=== PATIENT | male | born 1995 | race Two or more races ===

== ENCOUNTER 2021-02-24 04:48 | Emergency (ER) | payer OTHER ==
[2021-02-24] MEDS ORDERED: LIDOCAINE 1% INJ 10MG/ML (20 ML MDV) SQ ONE (04:56)
--- NOTE | 2021-02-24 04:56 | ED ---
Wound/Laceration HPI - General Chief Complaint: Wound/Laceration Stated Complaint: Laceration,Left Arm Time Seen by Provider: 02/24/21 04:54 Source: patient, EMS Mode of arrival: EMS Limitations: no limitations - History of Present Illness Initial Comments: 's patient is 25-year-old man who presents with complaint of laceration to the posterior aspect of left elbow. Patient states that he broke a heavy ceramic lamp when he fell and he was cut on the sharp edge of it. He denies any weakness or numbness distal to the injury. States that his last tetanus shot was less than 10 years ago. -: minutes(s) Extremity Location: Left: Elbow Place: home Patient Tetanus UTD: Yes Context: accidental Associated Symptoms: none Treatments Prior to Arrival: bandage - Related Data Allergies Allergy/AdvReac Type Severity Reaction Status Date / Time No Known Allergies Allergy Verified 02/24/21 04:52 Review of Systems ROS Statement: Those systems with pertinent positive or pertinent negative responses have been documented in the HPI. ROS Other: All systems not noted in ROS Statement are negative. Constitutional: Denies: fever Musculoskeletal: Reports: as per HPI (Left elbow laceration) Skin: Reports: as per HPI, other (Laceration). Denies: rash Neurological: Denies: weakness, numbness, paresthesias Hematological/Lymphatic: Denies: easy bleeding Past Medical History Past Medical History: No Reported History History of Any Multi-Drug Resistant Organisms: None Reported Past Surgical History: Cholecystectomy Past Psychological History: ADD/ADHD, Bipolar Smoking Status: Never smoker Past Alcohol Use History: Occasional Past Drug Use History: None Reported General Exam Limitations: no limitations General appearance: alert, in no apparent distress Cardiovascular Exam: Present: other (Strong radial and ulnar pulses on the left. Normal capillary refill distal to injury) Extremities exam: Present: full ROM, normal capillary refill (to left upper extremity). Absent: tenderness Neurological exam: Present: alert. Absent: motor sensory deficit Skin exam: Present: warm, dry, normal color, other (Laceration to the left forearm. Dorsal aspect, near elbow. [place] flap with 2.5 cm length along one leg and 4.5 cm length on the other leg. The laceration is into the muscle bed) Course Vital Signs 02/24/21 02/24/21 04:49 04:52 Temperature 98.2 F Pulse Rate 67 Respiratory 22 Rate Blood Pressure 112/64 O2 Sat by Pulse 97 Oximetry Procedures - Laceration Laceration #1 Consent Obtained: verbal consent Indication: laceration Site: upper extremity Size (cm): 6 Description: flap Depth: involves muscle layer Anesthetic Used: lidocaine 1% Anesthesia Technique: local infiltration Pre-repair: irrigated extensively Type of Sutures: nylon, vicryl Size of Sutures: 4-0 Number of Sutures: 19 Technique: simple, interrupted Patient Tolerated Procedure: well, no complications Disposition Clinical Impression: Laceration Disposition: HOME SELF-CARE Condition: Good Instructions (If sedation given, give patient instructions): Laceration (ED) Additional Instructions: Have sutures removed 12-14 days. Is patient prescribed a controlled substance at d/c from ED?: No Referrals: None,Stated [Primary Care Provider] - 1-2 days
[2021-02-24 06:08] VITALS: BP 127/77; PULSE 87; RESP 20; TEMP 98
== END 2021-02-24 06:06 | disposition home or self-care (01) ==
LOC: EC 04:48
DX: S51.012A Laceration without foreign body of left elbow, initial encounter (principal); F90.9 Attention-deficit hyperactivity disorder, unspecified type; F31.9 Bipolar disorder, unspecified; Z90.49 Acquired absence of other specified parts of digestive tract; W26.8XXA Contact with other sharp object(s), not elsewhere classified, initial encounter
CPT/HCPCS: 99283; 12002; J2001

== ENCOUNTER 2023-05-04 12:11 | Emergency (ER) | payer OTHER ==
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
[2023-05-04 14:48] LABS: Amphetamine Screen,Urine Not Detected (NotDetected); Barbiturate Screen,Urine Not Detected (NotDetected); Benzodiazepines Screen,Urine Not Detected (NotDetected); Cocaine Screen,Urine Not Detected (NotDetected); Methadone Screen, Urine Not Detected (NotDetected); Opiate Screen,Urine Not Detected (NotDetected); Oxycodone Screen, Urine Not Detected (NotDetected); Phencyclidine Screen,Urine Not Detected (NotDetected); Tricyclic Antidepressant,Urine Not Detected (NotDetected); Urn Cannabinoid Scrn Detected (NotDetected)
[2023-05-04 17:52] VITALS: BP 134/74; PULSE 80; RESP 16; TEMP 98
== END 2023-05-04 17:45 | disposition home or self-care (01) ==
LOC: EC 12:11
DX: F31.9 Bipolar disorder, unspecified (principal); F90.9 Attention-deficit hyperactivity disorder, unspecified type; F12.90 Cannabis use, unspecified, uncomplicated; Z79.899 Other long term (current) drug therapy; Z90.49 Acquired absence of other specified parts of digestive tract
CPT/HCPCS: 80306; 82075; 99285

== ENCOUNTER 2024-07-12 14:42 | Inpatient (IN) | payer MEDICAID, OTHER ==
--- NOTE | 2024-07-12 14:50 | ED ---
Psych HPI - General Chief Complaint: Psychiatric Symptoms Stated Complaint: Mental health eval Time Seen by Provider: 07/12/24 14:50 Source: patient, family, RN notes reviewed Mode of arrival: ambulatory - History of Present Illness Initial Comments: 29-year-old male presenting to emergency department with his [id number] for complaint of suicidal ideation and depression. Patient states that he has a decreased mood over the past few months and states that "i dont' want to be here anymore.' States that he has previous suicidal attempts that were unsuccessful. He denies homicidal ideation, auditory or visual hallucinations. Patient has history of psychiatric inpatient hospitalization with most recent being 2 years ago. follows with case management at [facility] who helps with his medications, states that he is on depatoke. does not follow with a psychiatrist or threapist. He denies drug or alcohol use. Denies physical complaint such as abdominal pain, shortness of breath, fevers, chills, or chest pain. Mother bedside states that patient cut off a majority of his hair prior to arrival with a kitchen knife and states that he has been having abnormal behavior. MD Complaint: suicidal ideation, feels depressed Associated Psychiatric Symptoms: depression, suicidal ideation History of same: Yes Context: not taking psychiatric medications Associated Symptoms: denies other symptoms - Related Data Home Medications Medication Instructions Recorded Confirmed Divalproex ER [Depakote ER] 500 mg PO BID 05/04/23 07/12/24 Allergies Allergy/AdvReac Type Severity Reaction Status Date / Time No Known Allergies Allergy Verified 07/12/24 15:52 Review of Systems ROS Statement: Those systems with pertinent positive or pertinent negative responses have been documented in the HPI. ROS Other: All systems not noted in ROS Statement are negative. Past Medical History Past Medical History: No Reported History History of Any Multi-Drug Resistant Organisms: None Reported Past Surgical History: Cholecystectomy Past Psychological History: ADD/ADHD, Bipolar Smoking Status: Never smoker Past Alcohol Use History: Rare Past Drug Use History: Marijuana General Exam Limitations: no limitations General appearance: alert, in no apparent distress Eye exam: Present: normal appearance, PERRL, EOMI. Absent: scleral icterus, conjunctival injection, periorbital swelling Neck exam: Present: normal inspection. Absent: tenderness, meningismus, lymphadenopathy Respiratory exam: Present: normal lung sounds bilaterally. Absent: respiratory distress, wheezes, rales, rhonchi, stridor Cardiovascular Exam: Present: regular rate, normal rhythm, normal heart sounds. Absent: systolic murmur, diastolic murmur, rubs, gallop, clicks GI/Abdominal exam: Present: soft, normal bowel sounds. Absent: distended, tenderness, guarding, rebound, rigid Extremities exam: Present: normal inspection, full ROM, normal capillary refill. Absent: tenderness, pedal edema, joint swelling, calf tenderness Psychiatric exam: Present: depressed, suicidal ideation Expanded Focused psych exam: Absent: pressured speech, restlessness, flight of ideas, loose associations Course Vital Signs 07/12/24 14:44 Temperature 97.4 F L Pulse Rate 74 Respiratory 18 Rate Blood Pressure 135/61 O2 Sat by Pulse 98 Oximetry Medical Decision Making - Medical Decision Making Was pt. sent in by a medical professional or institution (, PA, PHYSICS TUTOR, urgent care, hospital, or intermediate...) When possible be specific @ -No Did you speak to anyone other than the patient for history (EMS, parent, family, police, friend...)? What history was obtained from this source @ -No Did you review nursing and triage notes (agree or disagree)? Why? @ -I reviewed and agree with nursing and triage notes Were old charts reviewed (outside hosp., previous admission, EMS record, old EKG, old radiological studies, urgent care reports/EKG's, intermediate records)? Report findings @ -No old charts were reviewed Differential Diagnosis (chest pain, altered mental status, abdominal pain women, abdominal pain men, vaginal bleeding, weakness, fever, dyspnea, syncope, he adache, dizziness, GI bleed, back pain, seizure, CVA, palpatations, mental health, musculoskeletal)? @ -Differential Mental Health Depression, anxiety, bipolar, psychosis, schizophrenia, borderline personality, situational depression, adjustment disorder, behavioral disorder, brain tumor, malingering, substance abuse, encephalopathy, medication reaction, dementia, hypothyroidism, degenerative neurologic disorder, lupus.... This is not meant to be all-inclusive list EKG interpreted by me (3pts min.). @ -None X-rays interpreted by me (1pt min.). @ -None done CT interpreted by me (1pt min.). @ -None done U/S interpreted by me (1pt. min.). @ -None done What testing was considered but not performed or refused? (CT, X-rays, U/S, labs)? Why? @ -None What meds were considered but not given or refused? Why? @ -None Did you discuss the management of the patient with other professionals (professionals i.e. , PA, PHYSICS TUTOR, lab, RT, psych nurse, social media designer, chief petroleum engineer, teacher, evp and chief operating officer, case management director)? Give summary @ -i spoke with EPS nurse who recommends admission. patient is voluntarily signing himself in for admission. Was smoking cessation discussed for >3mins.? @ -No Was critical care preformed (if so, how long)? @ -No Were there social determinants of health that impacted care today? How? (Homelessness, low income, unemployed, alcoholism, drug addiction, transportation, low edu. Level, literacy, decrease access to med. care, detention, rehab)? @ -No Was there de-escalation of care discussed even if they declined (Discuss DNR or withdrawal of care, Hospice)? DNR status @ -No What co-morbidities impacted this encounter? (DM, HTN, Smoking, COPD, CAD, Cancer, CVA, ARF, Chemo, Hep., AIDS, mental health diagnosis, sleep apnea, morbid obesity)? @ -None Was patient admitted / discharged? Hospital course, mention meds given and route, prescriptions, significant lab abnormalities, going to OR and other pertinent info. @ -Mental health admission. 29-year-old male presenting with suicidal ideation. Patient noted to have overall flat affect and suicidal ideation on questioning. Patient denies physical complaints. Physical examination is unremarkable. Urine drug screen positive for THC. EPS recommends admission for the patient which patient has voluntarily signed himself in for admission. Undiagnosed new problem with uncertain prognosis? @ -No Drug Therapy requiring intensive monitoring for toxicity (Heparin, Nitro, Insulin, Cardizem)? @ -No Were any procedures done? @ -No Diagnosis/symptom? @ -Suicidal ideation, depression Acute, or Chronic, or Acute on Chronic? @ -acute Uncomplicated (without systemic symptoms) or Complicated (systemic symptoms)? @ -uncomplicated Side effects of treatment? @ -No Exacerbation, Progression, or Severe Exacerbation? @ -No Poses a threat to life or bodily function? How? (Chest pain, [place], [place], pneumonia, PE, COPD, DKA, ARF, appy, cholecystitis, CVA, Diverticulitis, Homicidal, Suicidal, threat to staff... and all critical care pts) @ -No - Lab Data Lab Results 07/12/24 07/12/24 Range/Units 14:50 15:28 Urine Opiates Screen Not Detected (NotDetected) Ur Oxycodone Screen Not Detected (NotDetected) Urine Methadone Screen Not Detected (NotDetected) Ur Barbiturates Screen Not Detected (NotDetected) U Tricyclic Antidepress Not Detected (NotDetected) Ur Phencyclidine Scrn Not Detected (NotDetected) Ur Amphetamines Screen Not Detected (NotDetected) U Methamphetamines Scrn Not Detected (NotDetected) U Benzodiazepines Scrn Not Detected (NotDetected) Urine Cocaine Screen Not Detected (NotDetected) U Marijuana (THC) Screen Detected H (NotDetected) Influenza Type A (PCR) Not Detected (Not Detectd) Influenza Type B (PCR) Not Detected (Not Detectd) RSV (PCR) Not Detected (Not Detectd) SARS-CoV-2 (PCR) Not Detected (Not Detectd) Disposition Clinical Impression: Suicidal ideation Disposition: ADMITTED IP TO THIS [facility] Condition: Serious Referrals: None,Stated [Primary Care Provider] - 1-2 days Decision to Admit Reason: Admit from EC Decision Date: 07/12/24 Decision Time: 15:31
[2024-07-12 15:21] LABS: Amphetamine Screen,Urine Not Detected (NotDetected); Barbiturate Screen,Urine Not Detected (NotDetected); Benzodiazepines Screen,Urine Not Detected (NotDetected); Cocaine Screen,Urine Not Detected (NotDetected); Methadone Screen, Urine Not Detected (NotDetected); Opiate Screen,Urine Not Detected (NotDetected); Oxycodone Screen, Urine Not Detected (NotDetected); Phencyclidine Screen,Urine Not Detected (NotDetected); Tricyclic Antidepressant,Urine Not Detected (NotDetected); Urn Cannabinoid Scrn Detected (NotDetected)
[2024-07-12 16:59] LABS: Influenza A Not Detected (Not Detectd); Influenza B Not Detected (Not Detectd); RSV Not Detected (Not Detectd)
[2024-07-12] MEDS ORDERED: haloperidoL 5 MG TAB PO PRN (17:26)
[2024-07-12] MEDS ORDERED: LORazepam 1 MG TAB PO PRN (17:26)
[2024-07-12] MEDS ORDERED: HALOPERIDOL LACTATE 5 MG/ML 1 ML VIAL IM PRN (17:26)
[2024-07-12] MEDS ORDERED: LORazepam 2 MG/ML INJ IM PRN (17:26)
[2024-07-12 17:41] LABS: Appearance,Urine Clear (Clear); Bacteria,Urine Rare /hpf; Bilirubin,Urine Negative (Negative); Blood,Urine Small (Negative); Color,Urine Yellow; Glucose,Urine (UA) Negative (Negative); Ketones,Urine Negative (Negative); Leukocyte Esterase,Urine Negative (Negative); Mucus,Urine Few /hpf; Nitrite,Urine Negative (Negative); PH, Urine 5.5 (5.0-8.0); Protein,Urine Trace (Negative); RBC,Urine 1 /hpf (0-5); Specific Gravity,Urine 1.034 (1.001-1.035); Urobilinogen,Urine <2.0 mg/dL (<2.0); WBC,Urine 1 /hpf (0-5)
[2024-07-12] MEDS: DIVALPROEX ER 500 MG TAB.ER.24H PO SCH (20:17)
[2024-07-12] MEDS ORDERED: DIVALPROEX ER 500 MG TAB.ER.24H PO SCH (21:00)
--- NOTE | 2024-07-13 03:45 | P.CONS ---
History of Present Illness - Reason for Consult Consult date: 07/13/24 - History of Present Illness Patient is a 29-year-old male with a PMH of ADHD and bipolar disorder who had presented to the emergency room with complaints of depression and suicidal ideation. The patient was admitted to mental health unit where he was seen and evaluated. Patient reports that he has been struggling with his thoughts of depression due to struggling with his social situation. He reports not being able to provide for his kids and not having steady work. He denies alcohol, tobacco, or substance use. He denies any active physical complaints at the time of interview. Denied experiencing chest discomfort, shortness of breath, fever, chills, cough, nausea, vomiting, abdominal pain, diarrhea. The patient's urine toxicology was positive for marijuana Review of systems: Pertinent positives and negatives as discussed in HPI, a complete review of systems was performed and all other systems are negative. Physical examination: Vital signs reviewed General: non toxic, no distress, appears at stated age, normal weight Derm: no unusual rashes/lesions, warm Head: atraumatic, normocephalic, symmetric Eyes: EOMI, no lid lag, anicteric sclera, pupils equal round reactive to light ENT: Nose and ears atraumatic Neck: No cervical lymphadenopathy, trachea midline, supple Mouth: no lip lesion, mucus membranes moist Cardiovascular: S1S2 reg, no murmur, positive dorsalis pedis pulse bilateral, no edema Lungs: CTA bilateral, no rhonchi, no rales, no accessory muscle use Abdominal: soft, nontender to palpation, no guarding Ext: muscle strength 5 out of 5 in all 4 extremities grossly, no gross muscle a trophy, no contractures, Neuro: CN II-XI grossly intact, no gross focal neuro deficits Psych: Alert, oriented, appropriate affect Assessment: Marijuana abuse Depression and suicidal ideation Plan: Advised on the importance of cessation from marijuana use Defer management of depression and suicidal ideation to the primary psychiatry service Past Medical History Past Medical History: No Reported History History of Any Multi-Drug Resistant Organisms: None Reported Past Surgical History: Cholecystectomy Past Psychological History: ADD/ADHD, Bipolar Smoking Status: Never smoker Past Alcohol Use History: Rare Past Drug Use History: Marijuana Additional Drug Use History / Comment(s): 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 Smokes weed occassionally. Medications and Allergies Home Medications Medication Instructions Recorded Confirmed Type Divalproex ER [Depakote ER] 500 mg PO BID 05/04/23 07/12/24 History Allergies Allergy/AdvReac Type Severity Reaction Status Date / Time No Known Allergies Allergy Verified 07/12/24 15:52 Physical Exam Vitals: Vital Signs Temp Pulse Pulse Resp BP BP Pulse Ox 07/12/24 18:11 97.3 F L 69 18 131/75 99 07/12/24 14:44 97.4 F L 74 18 135/61 98 Intake and Output 07/12/24 07/12/24 07/13/24 14:59 22:59 06:59 Other: Weight 81.647 kg 80.286 kg Results CBC & Chem 7: 07/13/24 07:18 07/13/24 07:18 Labs: Abnormal Lab Results - Last 24 Hours (Table) 07/12/24 07/12/24 Range/Units 14:50 17:21 Urine Protein Trace H (Negative) Urine Blood Small H (Negative) Urine Bacteria Rare H (None) /hpf Urine Mucus Few H (None) /hpf U Marijuana (THC) Screen Detected H (NotDetected)
[2024-07-13 07:34] LABS: Basophils # (A) 0.1 k/uL (0-0.2); Basophils % (A) 1 %; Eosinophils # (A) 0.1 k/uL (0-0.7); Eosinophils % (A) 1 %; HGB 16.3 gm/dL (13.0-17.5); Lymphocytes # (A) 2.6 k/uL (1.0-4.8); Lymphocytes % (A) 29 %; MCH 29.4 pg (25.0-35.0); MCHC 33.9 g/dL (31.0-37.0); MCV 86.7 fL (80.0-100.0); Mean Platelet Volume 7.5; Monocytes # (A) 0.4 k/uL (0-1.0); Monocytes % (A) 4 %; Neutrophils # (A) 5.8 k/uL (1.3-7.7); Neutrophils % (A) 64 %; Platelet Count 256 k/uL (150-450); RBC 5.54 m/uL (4.30-5.90); RDW 12.3 % (11.5-15.5); WBC 9.1 k/uL (3.8-10.6)
[2024-07-13 07:52] LABS: ALT 15 U/L (4-49); AST 23 U/L (17-59); African American GFR (CKD) >90 (>60 ml/min/1.73 sqM); Albumin 4.7 g/dL (3.5-5.0); Alkaline Phosphatase 53 U/L (38-126); Anion Gap 8 mmol/L; Bilirubin,Unconjugated 0.6 mg/dL (0.0-1.1); Blood Urea Nitrogen 13 mg/dL (9-20); Calcium 10.2 mg/dL (8.4-10.2); Carbon Dioxide 28 mmol/L (22-30); Chloride 103 mmol/L (98-107); Glucose 98 mg/dL (74-99); Non-African American GFR(CKD) >90 (>60 ml/min/1.73 sqM); Potassium 4.7 mmol/L (3.5-5.1); Sodium 139 mmol/L (137-145); Total Bilirubin 0.6 mg/dL (0.2-1.3); Total Protein 7.5 g/dL (6.3-8.2)
[2024-07-13 10:32] LABS: Chol/HDL Ratio 4.97 Ratio; LDL Cholesterol,Calculated 126.4 mg/dL (0.0-131.0)
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
[2024-07-13] MEDS: LITHIUM CARBONATE 150 MG CAP PO SCH (15:19)
[2024-07-13] MEDS: traZODone HCL 50 MG TAB PO SCH (21:04)
--- NOTE | 2024-07-14 11:25 | P.PN ---
Progress Note - Text Progress Note Date: 07/14/24 Interval History: Patient was seen today for psychiatric follow-up. He was taking part in group today and activities. He claims that he is doing a bit better today with regards to his depression and also his mood swings. States that he is feeling a bit more "level". He is not reporting any side effects at this time has been taking his medications. States that he slept a bit better with the trazodone and wants to remain on the same dose for now. Claims that he did speak with his who sounds optimistic about his medication changes. Claims that he is eating fairly drinking water. He is denying any suicidal homicidal ideations intent or plan. Denying any auditory or visual hallucinations. MENTAL STATUS EXAM: General Appearance: Patient appears to be thin, longer hair, wearing glasses, stated age is alert, directable, and attempts to cooperate. Patient appears to have improving hygiene and grooming. Improved eye contact Behavior: Patient is seated without any agitated behavior. Attempts to cooperate Speech: Patient's speech is fluent and nonpressured. Soft tone, improving mildly Mood/Affect: Patient reports their mood is depressed and anxious, improving mildly, affect is congruent Suicidality/Homicidality: Patient denies having any homicidal ideation intent or plan. Denies any suicidal ideations intent or plan Perceptions: Patient denies any visual hallucinations and denies any auditory hallucinations Though content/process: There is no evidence of any delusional thought content and thought process is linear and goal-directed. [place] Memory and concentration: AOX3, grossly intact for the purposes of this session Judgment and insight: Poor, improving mildly IMPRESSIONS: Bipolar disorder, current episode depressed Cannabis use disorder PLAN: -Patient is admitted under voluntary status to MHU for stabilization of psychiatric symptoms and safety. Patient has signed adult voluntary form and medication consent and is placed in patient's chart. -Medications : continue lithium 150 mg 3 times daily for mood stabilization/suicidal thoughts, trazodone 50 mg nightly for insomnia/mood -Ativan and Haldol PRN for agitation/aggression -check lithium level thursday am -NRT -not needed as patient does not smoke -SW on board for discharge planning. Encourage patient to participate in groups to work on coping skills. Hopeful for discharge early next week either Thursday or Thursday if patient is improving and lithium level at appropriate range
--- NOTE | 2024-07-15 12:51 | P.PN ---
Progress Note - Text Progress Note Date: 07/15/24 Interval History: Patient was seen today via telehealth in cross-coverage for Dr. Alford. He repor ts he has been feeling "pretty well", his anxiety is lower and is starting to feel more relaxed, feels less fidgety. He reports he was a "bit irritable this morning" but feels better now. He is compliant with this medications and denying any side effects at this time has been taking his medications. States he is sleeping better with Trazodone. He reports appetite is improving, is able to finish his meals. He is denying any suicidal or homicidal ideation, intent or plan. Denying any auditory or visual hallucinations. MENTAL STATUS EXAM: General Appearance: Patient appears to be slender adult male with espinoza and messy longer hair, wearing glasses, stated age and attempts to cooperate. Patient appears to have improving hygiene and grooming. Improved eye contact Behavior: Patient is seated without any agitated behavior. Attempts to cooperate Speech: Patient's speech is fluent and non-pressured. Mood/Affect: Patient reports their mood is depressed and anxious, improving mildly, affect is congruent Suicidality/Homicidality: Patient denies having any homicidal ideation intent or plan. Denies any suicidal ideation, intent or plan Perceptions: Patient denies any visual hallucinations and denies any auditory hallucinations Though content/process: There is no evidence of any delusional thought content and thought process is linear and goal-directed. Memory and concentration: AOX3, grossly intact for the purposes of this session Judgment and insight: Poor, improving mildly IMPRESSIONS: Bipolar disorder, current episode depressed Cannabis use disorder PLAN: -Patient is admitted under voluntary status to MHU for stabilization of psychiatric symptoms and safety. Patient has signed adult voluntary form and medication consent and is placed in patient's chart. -Medications: Continue [place] 150 mg 3 times daily for mood stabilization/suicidal thoughts and Trazodone 50 mg nightly for insomnia/mood. -Ativan and Haldol PRN for agitation/aggression -Check [place] level Thursday AM -NRT -not needed as patient does not smoke -SW on board for discharge planning. Encourage patient to participate in groups to work on coping skills. Hopeful for discharge early next week either Thursday or Thursday if patient is improving and lithium level at appropriate range.
--- NOTE | 2024-07-16 14:35 | P.PN ---
Subjective Progress Note Date: 07/16/24 Principal diagnosis: bipolar 1 depressed Patient was seen today. He was in the community room and came readily and was very cooperative He reports he has been feeling "pretty well", his anxiety is lower and is starting to feel more relaxed, feels less fidgety. . He is compliant with this medications and denying any side effects at this time has been taking his medications. States he is sleeping better with Trazodone. He reports appetite is improving, is able to finish his meals. He is denying any suicidal or homicidal ideation, intent or plan. Denying any auditory or visual hallucinations. MENTAL STATUS EXAM: good eye contact reasonable response times without being pre ssured says he has been feeling better. General Appearance: Patient appears to be slender adult male with espinoza and messy longer hair, wearing glasses, stated age and attempts to cooperate. Patient appears to have improving hygiene and grooming. Improved eye contact Behavior: Patient is seated without any agitated behavior. Attempts to cooperate Speech: Patient's speech is fluent and non-pressured. Mood/Affect: Patient reports their mood is depressed and anxious, improving mildly, affect is congruent Suicidality/Homicidality: Patient denies having any homicidal ideation intent or plan. Denies any suicidal ideation, intent or plan Perceptions: Patient denies any visual hallucinations and denies any auditory hallucinations Though content/process: There is no evidence of any delusional thought content and thought process is linear and goal-directed. Memory and concentration: AOX3, grossly intact for the purposes of this session Judgment and insight: Poor, improving mildly IMPRESSIONS: Bipolar disorder, current episode depressed(I spent a lot of time reviewing the basic medications for bipolar and what it is and what he has to do besides take medicine in order to stabilize) Cannabis use disorder(I spent a lot of time explaining the mechanism of cannabis and why it provides short-term calming and long-term worsening of brain control over movements ) PLAN: increase lithium to 300 twice a day leave everything elsealone. -Patient is admitted under voluntary status to MHU for stabilization of psychiatric symptoms and safety. Patient has signed adult voluntary form and medication consent and is placed in patient's chart. -Medications: Continue [place] 150 mg 3 times daily for mood stabilization/suicidal thoughts and Trazodone 50 mg nightly for insomnia/mood. -Ativan and Haldol PRN for agitation/aggression -Check [place] level Thursday AM -NRT -not needed as patient does not smoke -SW on board for discharge planning. Encourage patient to participate in groups to work on coping skills. Hopeful for discharge early next week either Thursday or Thursday if patient is improving and lithium level at appropriate range. Objective - Vital Signs Vital signs: Vital Signs Temp 97.5 F L 07/15/24 06:54 Pulse 105 H 07/16/24 08:49 Resp 18 07/12/24 18:11 BP 136/88 07/16/24 08:49 Pulse Ox 95 07/15/24 06:54 FiO2 - Labs CBC & Chem 7: 07/13/24 07:18 07/13/24 07:18
[2024-07-16] MEDS: LITHIUM CARBONATE 300 MG CAP PO SCH (21:01)
--- NOTE | 2024-07-17 08:18 | P.PN ---
Subjective Progress Note Date: 07/17/24 Principal diagnosis: bipolar 1 depressed Patient was seen today. He came readily and was very cooperative He reports he has been feeling "pretty well", his anxiety is lower and is starting to feel more relaxed, feels less fidgety. . He is compliant with this medications and denying any side effects at this time has been taking his medications. States he is sleeping better with Trazodone. He reports appetite is improving, is able to finish his meals. He is denying any suicidal or homicidal ideation, intent or plan. Denying any auditory or visual hallucinations.We bumped up his lithium yesterday and he is tolerating that well. MENTAL STATUS EXAM: good eye contact reasonable response times without being pressured says he has been feeling better. General Appearance: Patient appears to be slender adult male with espinoza and messy longer hair, wearing glasses, stated age and attempts to cooperate. Patient appears to have improving hygiene and grooming. Improved eye contact Behavior: Patient is seated without any agitated behavior. Attempts to cooperate Speech: Patient's speech is fluent and non-pressured. Mood/Affect: Patient reports their mood is depressed and anxious, but improving, affect is congruent Suicidality/Homicidality: Patient denies having any homicidal ideation intent or plan. Denies any suicidal ideation, intent or plan Perceptions: Patient denies any visual hallucinations and denies any auditory hallucinations Though content/process: There is no evidence of any delusional thought content and thought process is linear and goal-directed. Memory and concentration: AOX3, grossly intact for the purposes of this session Judgment and insight: Poor, improving mildly IMPRESSIONS: Bipolar disorder, current episode depressed(I spent a lot of time reviewing the basic medications for bipolar and what it is and what he has to do besides take medicine in order to stabilize) Cannabis use disorder(I spent a lot of time explaining the mechanism of cannabis and why it provides short-term calming and long-term worsening of brain control over movements ) PLAN: increase lithium to 300 twice a day leave everything elsealone. -Patient is admitted under voluntary status to MHU for stabilization of psychiatric symptoms and safety. Patient has signed adult voluntary form and medication consent and is placed in patient's chart. -Medications: Continue [place] 150 mg 3 times daily for mood stabilization/suicidal thoughts and Trazodone 50 mg nightly for insomnia/mood. -Ativan and Haldol PRN for agitation/aggression -Check [place] level Thursday AM -NRT -not needed as patient does not smoke -SW on board for discharge planning. Encourage patient to participate in groups to work on coping skills. Hopeful for discharge early next week either Thursday or Thursday if patient is improving and lithium level at appropriate range. Objective - Vital Signs Vital signs: Vital Signs Temp 97.5 F L 07/15/24 06:54 Pulse 105 H 07/16/24 08:49 Resp 18 07/12/24 18:11 BP 136/88 07/16/24 08:49 Pulse Ox 95 07/15/24 06:54 FiO2 - Labs CBC & Chem 7: 07/13/24 07:18 07/13/24 07:18
[2024-07-18] MEDS: ACETAMINOPHEN TAB 325 MG TAB PO PRN (12:56)
--- NOTE | 2024-07-18 15:17 | P.PN ---
Progress Note - Text Progress Note Date: 07/18/24 Interval History: Patient was seen today in cross-coverage for Dr. Alford. He reports he has been feeling "great". He reports his anxiety is 3/10, reports his overall mood is "good". He is compliant with this medications and denying any side effects at this time has been taking his medications. He reports fragmented sleep last night from not sleeping in his own bed, but reports he was still able to get about 8 hours of sleep. He reports appetite is improving. He is denying any suicidal or homicidal ideation, intent or plan. Denying any auditory or visual hallucinations. Redfield level is 0.5 this morning. MENTAL STATUS EXAM: General Appearance: Patient appears to be slender adult male with espinoza and shaggy haircut, wearing glasses, stated age. Behavior: Patient is seated without any agitated behavior. Attempts to cooperate, pleasant. Speech: Patient's speech is fluent and non-pressured. Mood/Affect: Patient reports their mood is good, affect is congruent Suicidality/Homicidality: Patient denies having any homicidal ideation intent or plan. Denies any suicidal ideation, intent or plan. Perceptions: Patient denies any visual hallucinations and denies any auditory hallucinations Though content/process: There is no evidence of any delusional thought content and thought process is linear and goal-directed. Memory and concentration: AOX3, grossly intact for the purposes of this session Judgment and insight: Improving mildly IMPRESSIONS: Bipolar disorder, current episode depressed Cannabis use disorder PLAN: -Patient is admitted under voluntary status to [facility] for stabilization of psychiatric symptoms and safety. Patient has signed adult voluntary form and medication consent and is placed in patient's chart. -Medications: Continue Redfield 300 mg BID for mood stabilization/suicidal thoughts. Continue Trazodone 50 mg QHS for insomnia. -Ativan and Haldol PRN for agitation/aggression -NRT -not needed as patient does not smoke -SW on board for discharge planning. Encourage patient to participate in groups to work on coping skills. -Plan for discharge tomorrow if continues to stabilize.
[2024-07-18] MEDS: IBUPROFEN 600 MG TAB PO PRN (20:07)
[2024-07-19 07:01] VITALS: BP 108/70; PULSE 72; RESP 16; TEMP 98.7
--- NOTE | 2024-07-19 10:20 | P.DS ---
Providers Date of admission: 07/12/24 17:20 Expected date of discharge: 07/19/24 Attending physician: Fer Alford MD Consults: 07/12/24 17:26 Consult Physician Routine Consulting Provider: Kenny Physician Consult Reason/Comments: H&P w/medical management Do you want consulting provider notified?: Yes Primary care physician: Stated None - Discharge Diagnosis(es) (1) Bipolar disorder current episode depressed Current Visit: Yes Status: Acute Priority: High (2) Cannabis use disorder Current Visit: Yes Status: Acute Priority: Medium Hospital Course: Admission HPI: Admission note was completed by senior copywriter" Patient is a 29-year-old male, currently single, lives with his family, he has 1 kid, they live in a trailer, he is unemployed. Patient presented to the hospital yesterday on 07/12 for complaints of suicidal ideations, increasing depression for the past several months. Patient apparently has a history of bipolar disorder, currently following up at [facility] with nurse practitioner. UDS is positive for THC, Depakote level was 47.9. Patient was seen by [facility] child welfare social worker and according to note "Clinician met with [place] in ER 14 to eval. Cl lying in bed, awake, A/O x4 presenting via grandmother due to SI w plan to jump off an over pass. Cl reports on going SI the last 30-60 days brought on by increased anxiety/depression following job loss prior to and hx of depression/ anxiety for several years. 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 Cl reports using THC to cope 2 joints daily. Cl is adopted and reports struggle with this at times as well as mood swings, anger outbursts. Cl's grandmother reports he has punched holes in malcolm in the past. Judgement/insight/impulse control: fair ADLS: independent Sleep/Karime: poor/poor reporting loss of appetite." Patient was seen today in the hallways agreeable to speak to senior copywriter for psychiatric evaluation. Patient had fairly poor eye contact soft tone of voice. States that he was feeling very hopeless at home feeling worthless. Claims that he has been struggling a lot with finances being unemployed for the past several weeks. Claims that he was working doing [employer] however has been laid off during the winter. Claims that his depression has been worsening, has been having "intrusive thoughts" which are worsening. States that he was having suicidal thoughts, was brought into the hospital, denied having any plan. Claims that at this time he does not have any suicidal thoughts denying any homicidal ideations. Does claim to have a history of manic episodes, history of bipolar disorder for the past 10 years. States that his sleep has been on and off appetite has been poor. At this time patient denies any auditory or visual hallucinations. Patient denies any flight of ideas racing thoughts and increased in goal directed behavior. Patient admits to using marijuana daily, denies any other recreational drug use" Hospital course: Upon admission to the unit patient was directable and agreeable to commence treatment and signed adult voluntary form. Patient got along well with other patients on the unit and followed unit protocol. Patient was compliant with the medications and denied any side effects throughout hospital course. Patient was started on lithium 300 mg twice daily for mood stabilization/suicidal thoughts, trazodone 50 mg nightly for insomnia/mood. Patient spoke of his stressors and engaged in therapy both group and individual. Patient was also seen by medical team for history and physical exam. Throughout the course of the hospitalization patient gradually improved with regards to mood, anxiety, sleep and became more future oriented with improved insight and judgment. On the day of discharge patient denied any suicidal or homicidal ideations intent or plan denied any auditory or visual hallucinations. Patient endorsed wanting to live for their health and family. The patient denied any access to guns or weapons. Patient denied any paranoia and did not endorse any delusions. Patient does have a significant history of substance abuse and was counseled on abstaining from all substances including alcohol and marijuana. Patient elected to do outpatient substance use treatment program through their outpatient provider.. Patient was also counseled on the medications and need for regular compliance and was encouraged to follow-up with their outpatient appointment for mental health and also for primary care. Prior to discharge a family meeting will be arranged by child welfare social worker to answer any questions and ensure safety upon discharge incuding making sure that guns/weapons are either removed from the home or locked away. Mental status exam: General Appearance: Patient appears to be thin, wearing glasses, stated age is alert, pleasant, and cooperative. Patient is in no acute distress and has improved hygiene and grooming Behavior: Patient is calmly seated without any agitated behavior. Speech: Patient's speech is fluent and nonpressured. Mood/Affect: Patient reports their mood is "good", affect is congruent and euthymic. Suicidality/Homicidality: Patient denies having any suicidal or homicidal ideation intent or plan. Perceptions: Patient denies any auditory or visual hallucinations. Though content/process: There is no evidence of any delusional thought content and thought process is linear and goal-directed. More future oriented Memory and concentration: AOX3, grossly intact for the purposes of this session. Can spell "WORLD" backwards correctly. Judgment and insight: improved with guarded prognosis Impression: Bipolar disorder, current episode depressed Cannabis use disorder Plan: -Continue with discharge today as patient has improved and stabilized psychiatrically and is not currently an imminent threat to themself and/or others. -Continue medications: Humphreys 300 mg twice daily for mood stabilization/suicidal thoughts, trazodone 50 mg nightly for insomnia/mood -Patient was counseled on the need for medication compliance and appropriate follow-up at mental health and also primary care for medical issues. Patient verbalized understanding and agreed. -Social work to arrange for and conduct family meeting to ensure safety upon discharge and answer any questions/concerns. also to ensure safe home environm ent that guns/weapons are either removed from the home or locked away. Social work also to arrange for patients follow up appointments with [facility] for psychiatric care along with follow up with primary care provider. -Patient counseled on abstaining from recreational drugs and marijuana and alcohol. Was informed/educated on the adverse effects on their physical and mental health. Patient verbally agreed and understood. -Patient was instructed to return to the hospital or seek immediate medical care if their psychiatric or medical symptoms do worsen or reoccur. Allergies Allergy/AdvReac Type Severity Reaction Status Date / Time No Known Allergies Allergy Verified 07/12/24 15:52 Laboratory Results WBC 9.1 k/uL (3.8-10.6) 07/13/24 07:18 RBC 5.54 m/uL (4.30-5.90) 07/13/24 07:18 Hgb 16.3 gm/dL (13.0-17.5) 07/13/24 07:18 Hct 48.0 % (39.0-53.0) 07/13/24 07:18 MCV 86.7 fL (80.0-100.0) 07/13/24 07:18 MCH 29.4 pg (25.0-35.0) 07/13/24 07:18 MCHC 33.9 g/dL (31.0-37.0) 07/13/24 07:18 RDW 12.3 % (11.5-15.5) 07/13/24 07:18 Plt Count 256 k/uL (150-450) 07/13/24 07:18 MPV 7.5 07/13/24 07:18 Neutrophils % 64 % 07/13/24 07:18 Lymphocytes % 29 % 07/13/24 07:18 Monocytes % 4 % 07/13/24 07:18 Eosinophils % 1 % 07/13/24 07:18 Basophils % 1 % 07/13/24 07:18 Neutrophils # 5.8 k/uL (1.3-7.7) 07/13/24 07:18 Lymphocytes # 2.6 k/uL (1.0-4.8) 07/13/24 07:18 Monocytes # 0.4 k/uL (0-1.0) 07/13/24 07:18 Eosinophils # 0.1 k/uL (0-0.7) 07/13/24 07:18 Basophils # 0.1 k/uL (0-0.2) 07/13/24 07:18 Sodium 139 mmol/L (137-145) 07/13/24 07:18 Potassium 4.7 mmol/L (3.5-5.1) 07/13/24 07:18 Chloride 103 mmol/L (98-107) 07/13/24 07:18 Carbon Dioxide 28 mmol/L (22-30) 07/13/24 07:18 Anion Gap 8 mmol/L 07/13/24 07:18 BUN 13 mg/dL (9-20) 07/13/24 07:18 Creatinine 0.87 mg/dL (0.66-1.25) 07/13/24 07:18 Est GFR (CKD-EPI)AfAm >90 (>60 ml/min/1.73 sqM) 07/13/24 07:18 Est GFR (CKD-EPI)NonAf >90 (>60 ml/min/1.73 sqM) 07/13/24 07:18 Glucose 98 mg/dL (74-99) 07/13/24 07:[address] Glu mg/dL 108 mg/dL 07/13/24 07:18 Hemoglobin A1c 5.4 % (<=6.0) 07/13/24 07:18 Calcium 10.2 mg/dL (8.4-10.2) 07/13/24 07:18 Total Bilirubin 0.6 mg/dL (0.2-1.3) 07/13/24 07:18 Conjugated Bilirubin 0.0 mg/dL (0.0-0.3) 07/13/24 07:18 Unconjugated Bilirubin 0.6 mg/dL (0.0-1.1) 07/13/24 07:18 Delta Bilirubin 0.0 mg/dL (0.0-0.2) 07/13/24 07:18 AST 23 U/L (17-59) 07/13/24 07:18 ALT 15 U/L (4-49) 07/13/24 07:18 Alkaline Phosphatase 53 U/L (38-126) 07/13/24 07:18 Total Protein 7.5 g/dL (6.3-8.2) 07/13/24 07:18 Albumin 4.7 g/dL (3.5-5.0) 07/13/24 07:18 Triglycerides 115.00 mg/dL (0.00-149.00) 07/13/24 07:18 Cholesterol 187.00 mg/dL (0.00-200.00) 07/13/24 07:18 LDL Cholesterol, Calc 126.4 mg/dL (0.0-131.0) 07/13/24 07:18 VLDL Cholesterol, Calc 23.00 mg/dL (5.00-40.00) 07/13/24 07:18 HDL Cholesterol 37.60 mg/dL (40.00-60.00) L 07/13/24 07:18 Cholesterol/HDL Ratio 4.97 Ratio 07/13/24 07:18 TSH 1.700 mIU/L (0.465-4.680) 07/13/24 07:18 Urine Color Yellow 07/12/24 17:21 Urine Appearance Clear (Clear) 07/12/24 17:21 Urine pH 5.5 (5.0-8.0) 07/12/24 17:21 Ur Specific Richfield 1.034 (1.001-1.035) 07/12/24 17:21 Urine Protein Trace (Negative) H 07/12/24 17:21 Urine Glucose (UA) Negative (Negative) 07/12/24 17:21 Urine Ketones Negative (Negative) 07/12/24 17:21 Urine Blood Small (Negative) H 07/12/24 17:21 Urine Nitrite Negative (Negative) 07/12/24 17:21 Urine Bilirubin Negative (Negative) 07/12/24 17:21 Urine Urobilinogen <2.0 mg/dL (<2.0) 07/12/24 17:21 Ur Leukocyte Esterase Negative (Negative) 07/12/24 17:21 Urine RBC 1 /hpf (0-5) 07/12/24 17:21 Urine WBC 1 /hpf (0-5) 07/12/24 17:21 Urine Bacteria Rare /hpf (None) H 07/12/24 17:21 Urine Mucus Few /hpf (None) H 07/12/24 17:21 Urine Opiates Screen Not Detected (NotDetected) 07/12/24 14:50 Ur Oxycodone Screen Not Detected (NotDetected) 07/12/24 14:50 Urine Methadone Screen Not Detected (NotDetected) 07/12/24 14:50 Ur Barbiturates Screen Not Detected (NotDetected) 07/12/24 14:50 Valproic Acid 47.9 ug/mL 07/12/24 19:48 U Tricyclic Antidepress Not Detected (NotDetected) 07/12/24 14:50 Ur Phencyclidine Scrn Not Detected (NotDetected) 07/12/24 14:50 Ur Amphetamines Screen Not Detected (NotDetected) 07/12/24 14:50 U Methamphetamines Scrn Not Detected (NotDetected) 07/12/24 14:50 U Benzodiazepines Scrn Not Detected (NotDetected) 07/12/24 14:50 Humphreys 0.5 mmol/L 07/18/24 06:55 Urine Cocaine Screen Not Detected (NotDetected) 07/12/24 14:50 U Marijuana (THC) Screen Detected (NotDetected) H 07/12/24 14:50 Influenza Type A (PCR) Not Detected (Not Detectd) 07/12/24 15:28 Influenza Type B (PCR) Not Detected (Not Detectd) 07/12/24 15:28 RSV (PCR) Not Detected (Not Detectd) 07/12/24 15:28 SARS-CoV-2 (PCR) Not Detected (Not Detectd) 07/12/24 15:28 Vital Signs Temp 98.7 F 07/19/24 06:27 Pulse 72 07/19/24 06:27 Resp 16 07/19/24 06:27 BP 108/70 07/19/24 06:27 Pulse Ox 99 07/19/24 06:27 FiO2 Patient Condition at Discharge: Stable Plan - Discharge Summary Discharge Rx Participant: No New Discharge Prescriptions: New Humphreys Carbonate 300 mg PO BID 30 Days #60 cap traZODone HCL [Desyrel] 50 mg PO HS PRN 30 Days #30 tab PRN Reason: Insomnia Discontinued Divalproex ER [Depakote ER] 500 mg PO BID Discharge Medication List Humphreys Carbonate 300 mg PO BID 30 Days #60 cap 07/19/24 [Rx] traZODone HCL [Desyrel] 50 mg PO HS PRN 30 Days #30 tab 07/19/24 [Rx] Follow up Appointment(s)/Referral(s): [facility] [NON-STAFF] - 1 Week Patient Instructions/Handouts: Bipolar Disorder (DC) Activity/Diet/Wound Care/Special Instructions: [facility] Discharge Info Avoid the use of street drugs and alcohol. Take all medications as prescribed. When you are in need of refills on your medications, please contact your outpatient medical provider and/or outpatient psychiatrist. Please go to your scheduled outpatient appointments for aftercare treatment. If symptoms return or become worse, call the crisis line at or and/or visit the nearest emergency room for assistance. National Suicide and Crisis Lifeline - call or text 988 Discharge Disposition: HOME SELF-CARE
== END 2024-07-19 12:11 | disposition home or self-care (01) | DRG 753 ==
LOC: EC 14:42 → 3MHU 17:20
PROVIDERS: ADMIT Psychiatry & Neurology Psychiatry; ATTEND Psychiatry & Neurology Psychiatry
DX: F31.30 Bipolar disorder, current episode depressed, mild or moderate severity, unspecified (principal); F12.10 Cannabis abuse, uncomplicated; R45.851 Suicidal ideations; F90.9 Attention-deficit hyperactivity disorder, unspecified type; G47.00 Insomnia, unspecified; F41.9 Anxiety disorder, unspecified; Z56.0 Unemployment, unspecified; Z79.899 Other long term (current) drug therapy; Z91.51 Personal history of suicidal behavior
CPT/HCPCS: 80053; 80061; 80164; 80178; 80306; 81001; 82075; 82248; 83036; 84443; 85025; 87636; 99285